=== PATIENT | male | born 1990 | race African-American/Black ===

== ENCOUNTER 2017-03-03 10:23 | Emergency (ER) | payer MEDICAID ==
[2017-03-03] MEDS ORDERED: VENLAFAXINE HYD25 MG (10:31)
[2017-03-03] MEDS ORDERED: PRILOSEC 20MG20 MG PO (10:31)
[2017-03-03] MEDS ORDERED: OXYCODONE5 M1 PO (13:30)
[2017-03-03] MEDS ORDERED: CLINDAMYCIN 300MG PO (13:30)
[2017-03-03 13:40] VITALS: BP 159/101
== END 2017-03-03 13:40 | disposition home or self-care (01) ==
LOC: ED 10:23
DX: J03.90 Acute tonsillitis, unspecified (principal); H66.93 Otitis media, unspecified, bilateral
CPT/HCPCS: J0696; J1885; J3010; J7030

== ENCOUNTER 2017-08-10 10:14 | Emergency (ER) | payer MEDICAID ==
[~2017-08-10] VITALS: Ht 172.7 cm; Wt 75.9 kg
[~2017-08-10 10:14] MED LIST: CLINDAMYCIN 300MG PO; OXYCODONE5 M1 PO; PRILOSEC 20MG20 MG PO; VENLAFAXINE HYD25 MG
[2017-08-10] MEDS ORDERED: AMOXICILLIN875 MG PO (10:39)
[2017-08-10] MEDS ORDERED: NORCO 325 MG-51 TA1 PO (10:39)
[2017-08-10 11:01] VITALS: BP 132/70
== END 2017-08-10 11:00 | disposition home or self-care (01) ==
LOC: ED 10:14
DX: K03.81 Cracked tooth (principal); K08.89 Other specified disorders of teeth and supporting structures; K08.409 Partial loss of teeth, unspecified cause, unspecified class

== ENCOUNTER 2017-11-25 12:41 | Emergency (ER) | payer MEDICAID ==
[~2017-11-25] VITALS: Ht 172.7 cm; Wt 80.0 kg
[~2017-11-25 12:41] MED LIST changes: +AMOXICILLIN875 MG PO; +NORCO 325 MG-51 TA1 PO
[2017-11-25 12:53] VITALS: BP 106/52
[2017-11-25] MEDS ORDERED: ULTRAM50 M1 PO (13:23)
[2017-11-25] MEDS ORDERED: IBU800 M1 PO (13:23)
[2017-11-25] MEDS ORDERED: AMOXICILLIN875 MG PO (13:23)
== END 2017-11-25 13:48 | disposition home or self-care (01) ==
LOC: ED 12:41
DX: K08.409 Partial loss of teeth, unspecified cause, unspecified class (principal); K03.81 Cracked tooth; K21.9 Gastro-esophageal reflux disease without esophagitis